=== PATIENT | female | born 1990 | race Caucasian/White ===

== ENCOUNTER 2017-07-01 19:26 | Emergency (ER) | payer BC, MEDICAID ==
[~2017-07-01] VITALS: Ht 167.6 cm; Wt 127.0 kg
[~2017-07-01 19:26] MED LIST: RIZA5TAB17 PO
[2017-07-01 19:34] VITALS: BP_SYST 139
--- NOTE | 2017-07-01 20:50 | NUR ---
[facility]
--- NOTE | 2017-07-01 21:00 | NUR ---
Patient to ER via triage with c/o cough, congestion, and SOB that has been ongoing since 06/10/17 at 0900. Patient denies any pain/discomfort at present. Patient with visitor at bedside, awaiting evaluation by ER MD, will continue to observe and assess. Patient with slow, even respirations, able to handle her own secretions.
--- NOTE | 2017-07-01 21:15 | NUR ---
Dr Calixto at bedside to evaluate patient.
[2017-07-01 21:30] VITALS: BP_SYST 191
--- NOTE | 2017-07-01 21:30 | NUR ---
Patient given written and verbal discharge instructions and verbalizes understanding. ER MD discussed with patient the results and treatment provided. Patient in stable condition. ID arm band removed. Rx of Prednisone, Albuterol given. Patient educated on pain management and to follow up with PMD. Pain Scale 0. Opportunity for questions provided and answered. Patient left ER ambulating with slow, steady gait in no acute distress with family at side.
== END 2017-07-01 21:30 | disposition home or self-care (01) ==
LOC: SED 19:26
DX: R05 Cough (principal); Z88.0 Allergy status to penicillin; Z88.5 Allergy status to narcotic agent
CPT/HCPCS: 36415; 71046-TC; 86710; 99285

== ENCOUNTER 2017-07-25 17:52 | Emergency (ER) | payer MEDICAID ==
[~2017-07-25] VITALS: Ht 167.6 cm; Wt 127.0 kg
[2017-07-25 18:00] VITALS: BP_SYST 155
--- NOTE | 2017-07-25 18:42 | NUR ---
Chris murphy in ED - 07/25/17 at 2153 by [email or web address] Pt laying in bed, coughing intermittently. Pt offered blanket, pt refused. Mother at bedside Will continue to monitor.
--- NOTE | 2017-07-25 19:31 | NUR ---
pt ambulatory to bed 6
--- NOTE | 2017-07-25 19:34 | NUR ---
Note undone in EDM - 07/25/17 at 2153 by [email or web address] Pt ambulated into ED c/o fever,chills, migraine, runny nose, congestion, and cough since this morning. Pt coughing loudly intermittently during interview. Pt speaking in full sentences, SaO2 97% on RA. No other injuries/complaints per pt/noted. Will continue to monitor
--- NOTE | 2017-07-25 20:10 | NUR ---
MARLEY Vera at bedside examining patient.
--- NOTE | 2017-07-25 20:42 | NUR ---
Pt laying in bed, coughing intermittently. Pt offered blanket, pt refused. Mother at bedside Will continue to monitor.
[2017-07-25] MEDS ORDERED: IBUPROFEN 800 MG TABLET PO ONE (21:15)
--- NOTE | 2017-07-25 21:45 | NUR ---
Patient given written and verbal discharge instructions and verbalizes understanding. ER MD Hester discussed with patient the results and treatment provided. Patient in stable condition. ID arm band removed. Rx of Tamiflu, Promethazine given. Patient educated on pain management and to follow up with PMD. Pain Scale 0. Opportunity for questions provided and answered.
[2017-07-25 21:51] VITALS: BP_SYST 149
== END 2017-07-25 21:45 | disposition home or self-care (01) ==
LOC: SED 17:52
DX: J09.X2 Influenza due to identified novel influenza A virus with other respiratory manifestations (principal); J45.909 Unspecified asthma, uncomplicated; Z88.0 Allergy status to penicillin; Z88.5 Allergy status to narcotic agent
CPT/HCPCS: 36415; 86710; 99284

== ENCOUNTER 2018-04-25 12:59 | Emergency (ER) | payer MEDICAID ==
[~2018-04-25] VITALS: Ht 167.6 cm; Wt 127.0 kg
[2018-04-25 13:09] VITALS: BP_SYST 122
[2018-04-25 13:42] LABS: BILIRUBIN,URINE NEGATIVE (NEGATIVE); BLOOD, URINE 1+ (NEGATIVE); CLARITY/URINE CLEAR (CLEAR); COLOR,URINE YELLOW (YELLOW); GLUCOSE,URINE NEGATIVE (NEGATIVE); KETONES,URINE NEGATIVE (NEGATIVE); LEUKOCYTE ESTERASE ,URINE 1+ (NEGATIVE); NITRITE, URINE NEGATIVE (NEGATIVE); PH,URINE 6.5 (5.0-8.0); PROTEIN URINE NEGATIVE (NEGATIVE); UROBILINOGEN,URINE 0.2 (0.2-1.0)
[2018-04-25] MEDS ORDERED: KETOROLAC TROMETHAMINE 30 MG VIAL IVP ONE (13:45)
[2018-04-25] MEDS ORDERED: NACL 0.9% 1,000 ML IV ONE (13:45)
[2018-04-25 13:51] LABS: BACTERIA,URINE FEW /HPF (None Seen); MUCUS,URINE 1+ /LPF (None Seen)
[2018-04-25 13:56] LABS: BASOPHILS # (AUTO) 0.1 K/uL (0.0-0.2); BASOPHILS % (AUTO) 0.7 % (0.0-2.0); EOSINOPHILS # (AUTO) 0.1 K/uL (0.0-0.4); EOSINOPHILS % (AUTO) 1.5 % (0.0-4.0); LYMPHOCYTES % (AUTO) 13.3 % (20.5-51.5); MEAN CORPUSCULAR HEMOGLOBIN 27 pg (27-31); MEAN CORPUSCULAR HGB CONC 32 % (32-36); MEAN CORPUSCULAR VOLUME 85 fL (79.0-98.0); MONOCYTES # (AUTO) 0.5 K/uL (0.0-1.0); MONOCYTES % (AUTO) 7.1 % (1.7-9.3); NEUTROPHILS % (AUTO) 77.4 % (40.0-70.0); PLATELET COUNT (AUTO) 310 K/uL (130-430); RED BLOOD CELL COUNT(AUTO) 4.82 MIL/uL (4.2-6.2); RED CELL DISTRIBUTION WIDTH 13.4 % (9.0-15.0); WHITE BLOOD COUNT (AUTO) 7.7 K/uL (4.8-10.8)
[2018-04-25 13:58] LABS: CALCIUM 9.1 mg/dL (8.4-11.0); CREATININE 0.67 mg/dL (0.55-1.30); POTASSIUM 3.7 mmol/L (3.5-5.1)
[2018-04-25 14:03] LABS: ALBUMIN 3.5 g/dL (3.4-4.8); TOTAL BILIRUBIN 0.2 mg/dL (0.0-1.0)
[2018-04-25 14:58] VITALS: BP_SYST 101
[2018-04-27 08:06] LABS: CHLAMYDIA TRACHOMATIS NAA Negative (Negative); NEISSERIA GONORRHOEAE NAA Negative (Negative)
== END 2018-04-25 14:53 | disposition home or self-care (01) ==
LOC: SED 12:59
DX: N39.0 Urinary tract infection, site not specified (principal); R03.0 Elevated blood-pressure reading, without diagnosis of hypertension; J45.909 Unspecified asthma, uncomplicated; Z88.0 Allergy status to penicillin; Z88.6 Allergy status to analgesic agent
CPT/HCPCS: 36415; 74176; 80053; 81000; 81025; 83605; 85025; 87040; 87086; 87491; 87591; 99285; J7030; J1885

== ENCOUNTER 2019-06-20 08:35 | Emergency (ER) | payer MEDICAID ==
[~2019-06-20] VITALS: Ht 167.6 cm; Wt 136.1 kg
[2019-06-20 08:35] VITALS: BP_SYST 143
--- NOTE | 2019-06-20 08:47 | NUR ---
Patient to ER bed 03 to gown for evaluation. Side rails up.
--- NOTE | 2019-06-20 08:52 | NUR ---
Patient AAOx4 c/o cough and congestion for 2 weeks. Patient states she went to urgent care and was given a Z-pack to no relief. Patient denies any PMH and states she has allergies to penicillin and codeine. Respirations even and unlabored, no signs or symptoms of acute distress noted.
--- NOTE | 2019-06-20 08:58 | NUR ---
ER Dr. Bird at bedside examining patient.
[2019-06-20] MEDS ORDERED: NACL 0.9% 1,000 ML IV ONE (09:02)
[2019-06-20] MEDS ORDERED: ALBUTEROL SULFATE 0.083% 2.5 MG/3 ML VIAL.NEB INH ONE ×2 (09:15→09:21)
[2019-06-20] MEDS ORDERED: IPRATROPIUM BROM 0.5 MG/2.5 ML VIAL.NEB (ATROVENT) INH ONE ×2 (09:15→09:21)
[2019-06-20] MEDS ORDERED: methylPREDNISolone SOD SUCC/PF 62.5 MG/ML VIAL IVP ONE (09:15)
--- NOTE | 2019-06-20 09:24 | NUR ---
# 22 gauge angiocath placed to LAC. Use of asceptic technique. Opsite placed over site. Blood return noted. Blood for lab drawn from site. Flushed with 10 cc of normal saline. No evidence of infiltration noted. Patient tolerated well.
--- NOTE | 2019-06-20 09:45 | NUR ---
Xray at bedside.
--- NOTE | 2019-06-20 10:47 | NUR ---
Patient given written and verbal discharge instructions and verbalizes understanding. ER MD discussed with patient the results and treatment provided. Patient in stable condition. ID arm band removed. IV catheter removed intact and dressing applied, no active bleeding. Rx of Prednisone and Cipro given. Patient educated on pain management and to follow up with PMD. Pain Scale 0/10. Opportunity for questions provided and answered. Medication side effect fact sheet provided.
[2019-06-20 10:49] VITALS: BP_SYST 140
== END 2019-06-20 10:47 | disposition home or self-care (01) ==
LOC: SED 08:35
DX: J45.909 Unspecified asthma, uncomplicated (principal); Z88.0 Allergy status to penicillin; Z88.6 Allergy status to analgesic agent
CPT/HCPCS: 71045; 81002; 94640; 96374; 99283; J2930; J7030; J7613